=== PATIENT | male | born 1955 | race Caucasian/White ===

== ENCOUNTER 2019-06-02 11:20 | Outpatient (CLI) | payer BC, SELFPAY ==
--- NOTE | 2019-06-02 11:31 | XR_ITS ---
WS: [id number] SHOULDER LEFT TECHNIQUE: 3 views of the left shoulder CLINICAL INFORMATION: LEFT SHOULDER JOINT PAIN COMPARISON: None. FINDINGS: Mild degenerative arthritis at the AC joint. Normal glenohumeral joint. Normal subacromial space. No acute fractures. XR/XR shoulder LT min 2V* [id number] IMPRESSION: Mild degenerative arthritis left AC joint. No acute fractures.
== END 2019-06-02 11:21 | disposition home or self-care (01) ==
LOC: RAD 11:27
PROVIDERS: Visit Provider Nurse Practitioner Family
DX: M19.012 Primary osteoarthritis, left shoulder (principal); M25.512 Pain in left shoulder
CPT/HCPCS: 73030